=== PATIENT | female | born 1970 | race Caucasian/White ===

== ENCOUNTER 2016-04-23 06:51 | Observation (INO) | payer OTHER ==
[2016-04-02 10:43] VITALS: BMI 29.0
--- NOTE | 2016-04-02 11:16 | PAT Medication Instructions ---
Service Date Apr 02, 2016. Current Home Medication List Acetaminophen Tab (Tylenol), 650 MG PO prn Medication Instructions For Your Scheduled Surgery - Take the following medications the morning of surgery with a sip of water: Acetaminophen Tab (Tylenol), 650 MG PO prn (if needed) - Take the following medications as scheduled the night before surgery: Acetaminophen Tab (Tylenol), 650 MG PO prn (if needed) If you have any questions please call us at [phone] or [phone] ( [place]) or [phone]
[2016-04-02 11:53] LABS: BASO % 0.1 %; BASO ABS # 0.01 K/uL (0-0.2); COMPLETE YES; EOS % 1.2 %; HEMATOCRIT 42.4 % (37-47); IG% 0.4 %; LYMPH % 43.1 %; LYMPH ABS # 4.84 K/uL (1.2-3.4); MEAN CELL VOLUME 94.2 fL (80-100); MEAN CORPUSCULAR HEMOGLOBIN 31.6 pg (25-34); MEAN CORPUSCULAR HGB CONC 33.5 g/dl (32-36); MEAN PLATELET VOLUME 9.8 fL (7.4-10.4); MONO % 4.8 %; NEUT % 50.4 %; PLATELET COUNT 352 K/uL (130-400); WHITE BLOOD COUNT 11.23 K/uL (4.8-10.8)
--- NOTE | 2016-04-02 11:53 | DIAGNOSTIC IMAGING REPORT ---
CHEST PREADMISSION(PA/LAT) CLINICAL HISTORY: PAT preoperative evaluation COMPARISON STUDY: No previous studies for comparison. FINDINGS: The bones soft tissues and hemidiaphragms are normal. The cardiomediastinal silhouette is normal. The lungs are clear. The pulmonary vasculature is normal. IMPRESSION: Negative chest. Electronically signed by: Harvinder Rico M.D. 04/02/2016 11:52 AM Dictated Date/Time: 04/02/2016 11:51 AM
[2016-04-02 11:56] LABS: URINE APPEARANCE CLEAR (CLEAR); URINE BILIRUBIN NEG (NEG); URINE COLOR YELLOW; URINE NITRITE NEG (NEG); URINE PH 5.5 (4.5-7.5); URINE SPECIFIC GRAVITY 1.006 (1.000-1.030); UROBILINOGEN NEG (NEG)
[2016-04-02 11:58] LABS: MANUAL MICROSCOPIC REQUIRED? NO; REVIEW REQ? NO
[2016-04-02 12:20] LABS: BUN/CREATININE RATIO 2.5 (10-20); CALCIUM 8.9 mg/dl (8.5-10.1); CREATININE 0.75 mg/dl (0.60-1.20); POTASSIUM 3.3 mmol/L (3.5-5.1)
[2016-04-23] VITALS (16 sets, daily range): BP systolic 95–124; BP diastolic 63–82; PULSE 59–92; TEMP 36.3–37; O2SAT 91–97; Ht 165.1 cm; Wt 80.0 kg
[~2016-04-23] VITALS: Ht 165.1 cm; Wt 80.0 kg
[~2016-04-23 06:51] MED LIST: ACET325T96 PO; CLINDAMYCIN 600 MG/54 ML D5W IV SCH; CLINDAMYCIN IV 600 MG in DEXTROSE 5% ADD-VANTAGE 50ML 50 ML IV SCH; CeleBREX 200 MG CAP PO SCH; LACTATED RINGER'S 1000ML 1,000 ML IV SCH; PREGABALIN 75 MG CAP PO SCH
[2016-04-23] MEDS ORDERED: ROCURONIUM BROMIDE 10 MG/ML 5 ML VIAL ONE (07:17)
[2016-04-23] MEDS ORDERED: PROPOFOL IV EMULSION 10 MG/ML 20 ML VIAL IV ONE (07:17)
[2016-04-23] MEDS ORDERED: LIDOCAINE HCL 2% 2 ML VIAL (20MG/ML) ONE (07:17)
[2016-04-23] MEDS ORDERED: DEXAMETHASONE SOD INJ 4 MG/ML VIAL ONE (07:17)
[2016-04-23] MEDS ORDERED: MIDAZOLAM HCL 1 MG/ML 2ML VIAL ONE (07:17)
[2016-04-23] MEDS ORDERED: ONDANSETRON INJ 2 MG/ML 2 ML VIAL ONE (07:17)
[2016-04-23] MEDS ORDERED: GLYCOPYRROLATE INJ 0.2 MG/ML VIAL ONE (07:17)
[2016-04-23] MEDS ORDERED: NEOSTIGMINE METHYLSULFATE 1 MG/ML 10ML VIAL ONE (07:17)
[2016-04-23] MEDS ORDERED: FENTANYL CITRATE INJ 50 MCG/1 ML 2 ML VIAL ONE (07:17)
[2016-04-23] MEDS ORDERED: ALBUT/IPRATROP 3MG/0.5MG NEB 3 ML VIAL INH ONE (07:30)
[2016-04-23] MEDS ORDERED: BACITRACIN 50000 UNIT VIAL ONE (07:40)
[2016-04-23] MEDS ORDERED: THROMBIN 5000 UNITS KIT ONE (07:40)
[2016-04-23] MEDS ORDERED: ATROPINE SULFATE 0.1 MG/ML 5ML SYR IV PRN (07:45)
[2016-04-23] MEDS ORDERED: PHENYLEPHRINE 100MCG/ML 5ML SYR IV PRN (07:45)
[2016-04-23] MEDS ORDERED: ONDANSETRON INJ 2 MG/ML 2 ML VIAL IV PRN ×2 (07:45→11:00)
[2016-04-23] MEDS ORDERED: EpHEDrine SULFATE INJ 50 MG/ML AMP IV PRN (07:45)
--- NOTE | 2016-04-23 08:42 | History and Physical ---
History & Physical Date Apr 23, 2016. Chief Complaint neck and R arm pain/numbness History of Present Illness The patient is a 45 year old female with complaints of above who had longstanding symptoms that failed to respond to outpatient treatment. she reports R arm numbness/pain. no L arm symptoms or myelopathic symptoms. no incontinence. MRI show large disc herniation C6-7 and DDD C5-6 with foraminal stenosis. Past Medical/Surgical History BTL uterine ablation cervicalgia Additional History Hepatic Disease: No Endocrine Disorder: No Kidney Disease: No Hypertension: No Heart Disease: No Bleeding Tendencies: No Infectious Diseases: No Allergies Coded Allergies: Penicillins (Verified Allergy, Unknown, HIVES, 04/23/16) Hydrocodone (Verified Adverse Reaction, Unknown, N/V, 04/23/16) Home Medications Scheduled Acetaminophen Tab (Tylenol), 650 MG PO prn Physical Examination Skin: warm/dry Eyes: normal inspection ENT: normal ENT inspection Head: normocephalic, atraumatic Neck: supple, trachea midline Respiratory/Chest: lungs clear, no respiratory distress Cardiovascular: regular rate, rhythm Back: normal inspection Extremities: normal inspection, normal range of motion Neurologic/Psych: no motor/sensory deficits, alert, normal reflexes, oriented x 3 Diagnosis HNP C5-7/DDD Plan of Treatment C5-7 ACDF
[2016-04-23] MEDS ORDERED: HYDROmorphone INJ 2 MG/ML SYR/VIAL ONE (09:02)
[2016-04-23] MEDS: FLOSEAL HEMOSTATIC MATRIX 5ML TOP ONE (10:42)
--- NOTE | 2016-04-23 10:49 | [facility] Post Operative Brief Note ---
Immediate Operative Summary Operative Date Apr 23, 2016. Pre-Operative Diagnosis Herniated Nucleus Pulposus C5-C7 and Degenerative disc disease Post-Operative Diagnosis Same as preoperative diagnosis Procedure(s) Performed C5-C7 Anterior Cervical Discectomy and Fusion with Allograft Surgeon Dr Rees Senior Graduate Advisor Surgeon(s) Johann Russ PA-C Estimated Blood Loss 10ml Findings dict Specimens None per surgeon
[2016-04-23] MEDS ORDERED: ACETAMINOPHEN IV 1,000 MG in EMPTY BAG 0 ML IV PRN (11:00)
[2016-04-23] MEDS ORDERED: NALOXONE HCL 0.4 MG/1 ML VIAL/CARP IV PRN (11:00)
[2016-04-23] MEDS ORDERED: DiphenhydrAMINE HCL 50 MG/ML VIAL IV PRN (11:00)
[2016-04-23] MEDS ORDERED: LORAZEPAM 0.5 MG TAB PO PRN (11:00)
[2016-04-23] MEDS ORDERED: DEXAMETHASONE INJ 8 MG in SYRINGE 0 ML IV PRN (11:00)
[2016-04-23] MEDS ORDERED: LORAZEPAM INJ 0.5 MG in SYRINGE 0.75 ML IV PRN (11:00)
[2016-04-23] MEDS ORDERED: HYDROmorphone INJ 0.5 MG/0.5 ML SYR IV PRN (11:00)
[2016-04-23] MEDS ORDERED: OXYC-57 PO (11:00)
[2016-04-23] MEDS ORDERED: RACEPINEPHRINE 2.25% NEBU SOLN 0.5 ML VIAL INH PRN (11:00)
--- NOTE | 2016-04-23 11:02 | Discharge Instructions ---
Discharge Instructions Admission Reason for Admission: Cervical Spinal Stenosis Discharge Discharge Diagnosis / Problem: Cervical Stenosis Discharge Goals Goal(s): Decrease discomfort, Improve function, Increase independence Activity Recommendations Activity Limitations: as noted below Lifting Limitations: no more than 5 pounds Exercise/Sports Limitations: until after follow-up appointment May Resume Sexual Activity: after follow-up appointment Shower/Bathe: may shower/bathe in 3 days . Instructions / Follow-Up Instructions / Follow-Up ACTIVITY RECOMMENDATIONS: SELF CARE INSTRUCTIONS AFTER CERVICAL FUSIONS 1. No smoking. Smoking drastically decreases the chance of a solid fusion. 2. No bending, lifting more than 5 pounds, or twisting (roll like a log when turning in bed). 3. You may shower 3 days after surgery. Thoroughly dry wound. Do not soak in the tub. 4. Cervical collar: Must be worn at all times including sleeping. You may remove the brace only to bath, eat and if you are sitting in a recliner. 5. Please walk as much as you can for exercise. Gradually increase the distance that you walk as your endurance increases. SPECIAL CARE INSTRUCTIONS: VERY IMPORTANT TO READ AND REVIEW A. Do not take any anti-inflammatory medications (i.e. Indocin, Advil, Aspirin, Naprosyn, Aleve, Motrin, etc.) as these may inhibit the chance of a solid fusion. Tylenol is okay to take. B. Your surgical incision has been closed with a cosmetic suture under the skin that will dissolve in about 6 weeks. In 14 days, you can use a pair of clean scissors and cut the suture that is left outside of the skin at the ends of your incision. C. Complications are uncommon, but please contact us if you have any signs or symptoms of: 1. wound infection (fever higher than 102.5 degrees F, redness, separation of wound, drainage, or increasing pain from the incision) 2. blood clots in legs (pain, swelling, redness and warmth in legs) 3. urinary tract infection (fever higher than 102.5 degrees, burning upon urination or increased frequency of urination) 4. nerve problems (inability to walk on your toes or heels, numbness, loss of bowel or bladder control) 5. any other symptoms that concern you. D. Please call the office at if you have any concerns or questions about your operation or recovery. MANAGING PAIN AFTER SPINAL SURGERY 1. Narcotic medication is intended for short-term use and will be provided for surgical pain. Surgical pain usually lasts for a period of 4-6 weeks. Narcotic medication includes Percocet, Vicodin, Darvocet, Tylenol #3 or Lortab. 2. Longer-term pain is more appropriately treated with non-narcotic medication such as Tylenol ES. 3. Muscle spasm is not appropriately treated with narcotics. Muscle relaxers such as Soma, Flexeril or Skelaxin can be used along with Tylenol ES. 4. Remember that we all live with some "aches and pains". This is not unusual or uncommon after an injury or as we get older. 5. We will provide appropriate medication within the normal guidelines of their prescribed use. We will also be very cautious and aware of potential abuse and extended duration of patients' medication needs. 6. Please allow 2-3 days to process refills. Prescriptions will not be mailed but must be picked up at the office. FOLLOW UP VISIT: Keep your scheduled follow-up appointment. Any questions, please call the office at . Current Hospital Diet Patient's current hospital diet: Clear Liquid Diet Discharge Diet Recommended Diet: Regular Diet Procedures Procedures Performed: C5-C7 Anterior Cervical Discectomy and Fusion with Allograft Pending Studies Studies pending at discharge: no Medical Emergencies . Who to Call and When: Medical Emergencies: If at any time you feel your situation is an emergency, please call 911 immediately. . Non-Emergent Contact Non-Emergency issues call your: Surgeon Call Non-Emergent contact if: temperature is above 101, your pain is not controlled, wound has increased drainage, wound has increased redness, wound has increased pain, you have any medication questions . "Provider Documentation" section prepared by Segundo Russ. VTE Core Measure Inpt VTE Proph given/why not?: [facility] Drug Monitoring Program Search Results: patient reviewed within database, no issues identified
[2016-04-23] MEDS: HYDROmorphone INJ 2 MG/ML SYR/VIAL IV PRN ×2 (11:33→11:53)
[2016-04-23] MEDS ORDERED: IV FLUIDS COMPLETED PRN (11:45)
[2016-04-23] MEDS ORDERED: PHENYLEPHRINE 100MCG/ML 5ML SYR ONE (12:00)
[2016-04-23] MEDS: SODIUM CHLORIDE 0.9% 1000ML 1,000 ML IV SCH ×2 (12:52→23:34)
--- NOTE | 2016-04-23 13:23 | Anesthesiology Progress Note ---
Anesthesia Post Op Note Date & Time Apr 23, 2016 at 13:22 Vital Signs Pain Intensity: 2 Vital Signs Past 12 Hours Date Time Temp Pulse Resp B/P Pulse Ox O2 Delivery O2 Flow Rate FiO2 04/23/16 13:09 36.8 67 16 107/71 93 High Flow Oxygen 4.0 Nasal Cannula 04/23/16 13:05 68 16 94 Nasal Cannula 4.0 04/23/16 12:10 36.7 61 18 116/65 93 Nasal Cannula 4 04/23/16 12:00 68 14 138/75 94 Nasal Cannula 4 04/23/16 11:50 63 13 113/62 93 Nasal Cannula 4 04/23/16 11:40 56 12 115/66 93 Nasal Cannula 4 04/23/16 11:30 77 18 135/54 96 Mask 10 04/23/16 11:20 82 18 139/68 96 Mask 10 04/23/16 11:10 36.7 93 20 137/105 98 Mask 10 04/23/16 07:40 68 14 96 Room Air 04/23/16 07:10 36.5 76 20 113/80 97 Room Air Notes Mental Status: alert / awake / arousable, participated in evaluation Pt Amnestic to Procedure: Yes Nausea / Vomiting: adequately controlled Pain: adequately controlled Airway Patency, RR, SpO2: stable & adequate BP & HR: stable & adequate Hydration State: stable & adequate Anesthetic Complications: no major complications apparent
[2016-04-23] MEDS ORDERED: SCOPOLAMINE 1.5 MG TDSY TD SCH (14:00)
--- NOTE | 2016-04-23 14:04 | DIAGNOSTIC IMAGING REPORT ---
INTRAOPERATIVE CERVICAL SPINE 3 VIEWS CLINICAL HISTORY: ACDF C5-C7 COMPARISON STUDY: No previous studies for comparison. FINDINGS: 3 intraoperative fluoroscopic spot images are provided for interpretation. There are postsurgical changes of anterior discectomies at the C5-6 and C6-7 levels. 8 seconds of fluoroscopic time was utilized. IMPRESSION: Postsurgical changes of C5-6 and C6-7 discectomies with disc implants. Electronically signed by: Lavon Regan M.D. 04/23/2016 2:02 PM Dictated Date/Time: 04/23/2016 2:01 PM
--- NOTE | 2016-04-23 15:02 | OPERATIVE REPORT ---
DATE OF OPERATION: 04/23/2016 PREOPERATIVE DIAGNOSES: 1. C5-C6 disk degeneration. 2. C6-C7 herniated nucleus pulposus. POSTOPERATIVE DIAGNOSES: Same. PROCEDURES: 1. C5-C6 anterior cervical discectomy and fusion and application of PEEK intervertebral spacer with local autograft and DBM putty. 2. Anterior cervical diskectomy and fusion with application of PEEK intervertebral spacer, local autograft and DBM putty C6-C7. 3. Anterior cervical instrumentation C5-C6 and C6-C7 with LDR anterior cervical blade plate. SURGEON: Dr. Rees. MANUFACTURING STOREPERSON: Segundo Russ PA-C. Please note he participated in all portions of the procedure and was critical for performance of the procedure, participated in positioning, prepping, draping, retraction, and wound closure. ANESTHESIA: General endotracheal anesthesia. COMPLICATIONS: None. ESTIMATED BLOOD LOSS: Minimal. DESCRIPTION OF PROCEDURE: After identification of the patient and operative level, she was brought to the OR, where she underwent induction of general anesthesia. She was positioned supine on [facility] OR table. All bony prominences were well padded. The arms were tucked at sides and well padded. The arms, shoulders were taped distally and the anterior neck was sterilely prepped and draped in usual fashion. Antibiotics were administered. Time-out was performed. Level was confirmed and transverse skin incision was made on the right side of the neck at the level of the cricoid cartilage. I divided the platysma in line with the incision and performed a routine anterior cervical exposure with blunt dissection medial to the carotid sheath and identified the presumptive disk spaces. I confirmed level with fluoroscopy and marked the operative levels and mobilized the longus colli. A self-retaining cervical retractor was placed and Rice pins put in the bodies of C5 and C7. I reconfirmed level and then applied slight distraction across the pins. I then proceeded to do a complete diskectomy at C5-C6 and at C6-C7. After complete removal of each disk, I took down the posterior osteophytes with a kevin, posterior annulus and the PLL and did foraminotomies as necessary. There was extruded disk material behind the annulus C6-C7, but not behind the PLL. I palpated the nerve roots, we decompressed at C5-C6 and C6-C7 bilaterally. I then decorticated the endplates at C5-C6 and C6-C7 with a high speed kevin and determined graft size with trial sizers and inserted PEEK cages filled with local bone and DBM putty into the spaces at C5-C6 and C6-C7. I then released the distraction, applied bone wax over the holes and placed anterior cervical blade plates through the cages in the vertebral bodies of C5, C6 and C7 respectively. I obtained final x-rays, confirmed hemostasis, irrigated with bacitracin solution and closed in layered fashion over a small round drain. All sponge and needle counts were correct at the end of the case. I attest to the content of the Intraoperative Record and any orders documented therein. Any exceptio ns are noted below.
[2016-04-23] MEDS: CHECK SCOPOLAMINE PATCH PLACEMENT SCH ×2 (16:28→23:34)
[2016-04-23] MEDS: CLINDAMYCIN IV 600 MG in DEXTROSE 5% ADD-VANTAGE 50ML 50 ML IV SCH ×2 (16:28→23:33)
[2016-04-23] MEDS: DEXAMETHASONE INJ 6 MG in SYRINGE 0 ML IV SCH ×2 (16:28→23:34)
[2016-04-23] MEDS: OXYCODONE HCL IR 5 MG TAB (IMMEDIATE RELEASE) PO PRN ×2 (18:37→19:04)
[2016-04-24] VITALS (13 sets, daily range): BP systolic 93–104; BP diastolic 59–68; PULSE 58–78; TEMP 36.4–37; O2SAT 87–92
[2016-04-24] MEDS: OXYCODONE HCL IR 5 MG TAB (IMMEDIATE RELEASE) PO PRN (05:36)
[2016-04-24] MEDS: DEXAMETHASONE INJ 6 MG in SYRINGE 0 ML IV SCH (07:43)
[2016-04-24] MEDS: CHECK SCOPOLAMINE PATCH PLACEMENT SCH (07:43)
[2016-04-24] MEDS: CLINDAMYCIN IV 600 MG in DEXTROSE 5% ADD-VANTAGE 50ML 50 ML IV SCH (07:43)
--- NOTE | 2016-04-24 11:27 | Orthopedic Progress Note ---
Orthopedic Progress Note Date of Service Apr 24, 2016. Subjective Post OP Day: 1 Reports: feeling well, pain controlled w PO medications, Denies: SOB, calf pain , chest pain, complaints, light headedness, nausea / vomiting, using TEACHER OF THE VISUALLY IMPAIRED Objective calves soft nontender, N/V intact, incision C/D/I, A&O x3 Date Time Temp Pulse Resp B/P Pulse Ox O2 Delivery O2 Flow Rate FiO2 04/24/16 11:11 58 16 90 Room Air 04/24/16 09:27 37.0 77 16 96/62 91 4.0 04/24/16 07:27 70 16 90 Nasal Cannula 4.0 04/24/16 07:11 90 Nasal Cannula 4.0 04/24/16 06:56 36.7 64 17 96/63 90 Nasal Cannula 3.0 04/24/16 06:22 92 Nasal Cannula 4.0 Humidified Oxygen 04/24/16 06:18 87 Nasal Cannula 3.0 Humidified Oxygen 04/24/16 05:28 36.7 60 16 102/66 92 Nasal Cannula 3.0 Humidified Oxygen 04/24/16 03:25 36.4 62 16 93/59 92 Nasal Cannula 3.0 Humidified Oxygen 04/24/16 03:21 78 16 92 Nasal Cannula 3.0 04/24/16 01:32 36.8 61 16 101/61 91 Nasal Cannula 3.0 Humidified Oxygen 04/23/16 23:29 36.7 88 16 124/82 91 Nasal Cannula 3.0 Humidified Oxygen 04/23/16 23:27 59 14 92 Nasal Cannula 3.0 04/23/16 21:28 36.4 83 16 104/70 93 Nasal Cannula 3.0 Humidified Oxygen 04/23/16 19:41 81 16 94 Nasal Cannula 4.0 04/23/16 19:33 36.4 80 18 110/74 93 Nasal Cannula 4.0 Humidified Oxygen 04/23/16 19:30 Nasal Cannula 4.0 Humidified Oxygen 04/23/16 17:41 36.3 65 18 95/63 94 Nasal Cannula 2.0 04/23/16 15:37 78 16 93 Nasal Cannula 4.0 04/23/16 15:30 36.9 87 16 103/68 95 Nasal Cannula 4.0 Humidified Oxygen 04/23/16 15:23 95 Nasal Cannula 2.0 Humidified Oxygen 04/23/16 14:30 92 16 107/68 95 Nasal Cannula 4.0 Humidified Oxygen 04/23/16 14:30 95 Nasal Cannula 2.0 Humidified Oxygen 04/23/16 13:26 82 16 110/71 92 High Flow Oxygen 4.0 Nasal Cannula 04/23/16 13:09 36.8 67 16 107/71 93 High Flow Oxygen 4.0 Nasal Cannula 04/23/16 13:05 68 16 94 Nasal Cannula 4.0 04/23/16 12:30 92 Nasal Cannula 2.0 04/23/16 12:30 92 Nasal Cannula 2.0 Humidified Oxygen 04/23/16 12:30 37.0 69 16 98/64 92 Nasal Cannula Humidified Oxygen 04/23/16 12:10 36.7 61 18 116/65 93 Nasal Cannula 4 04/23/16 12:00 68 14 138/75 94 Nasal Cannula 4 04/23/16 11:50 63 13 113/62 93 Nasal Cannula 4 04/23/16 11:40 56 12 115/66 93 Nasal Cannula 4 04/23/16 11:30 77 18 135/54 96 Mask 10 Assessment & Plan Assessment: s/p acdf Plan: looks great, d/c home
--- NOTE | 2016-04-24 13:32 | Anesthesiology Progress Note ---
Anesthesia Post Op Note Date & Time Apr 24, 2016 at 08:00 Vital Signs Pain Intensity: 0.0 Vital Signs Past 12 Hours Date Time Temp Pulse Resp B/P Pulse Ox O2 Delivery O2 Flow Rate FiO2 04/24/16 11:38 36.6 62 16 104/68 90 Room Air 04/24/16 11:26 37.0 58 16 90 Room Air 04/24/16 11:11 58 16 90 Room Air 04/24/16 09:27 37.0 77 16 96/62 91 4.0 04/24/16 07:27 70 16 90 Nasal Cannula 4.0 04/24/16 07:11 90 Nasal Cannula 4.0 04/24/16 06:56 36.7 64 17 96/63 90 Nasal Cannula 3.0 04/24/16 06:22 92 Nasal Cannula 4.0 Humidified Oxygen 04/24/16 06:18 87 Nasal Cannula 3.0 Humidified Oxygen 04/24/16 05:28 36.7 60 16 102/66 92 Nasal Cannula 3.0 Humidified Oxygen 04/24/16 03:25 36.4 62 16 93/59 92 Nasal Cannula 3.0 Humidified Oxygen 04/24/16 03:21 78 16 92 Nasal Cannula 3.0 04/24/16 01:32 36.8 61 16 101/61 91 Nasal Cannula 3.0 Humidified Oxygen Notes Mental Status: alert / awake / arousable, participated in evaluation Pt Amnestic to Procedure: Yes Nausea / Vomiting: adequately controlled Pain: adequately controlled Airway Patency, RR, SpO2: stable & adequate BP & HR: stable & adequate Hydration State: stable & adequate Anesthetic Complications: no major complications apparent pt breathing comfortable, with no obvious s/s of airway obstruction pt states they are comfortable.
--- NOTE | 2016-05-19 13:57 | Discharge Summary ---
Orthopedic Discharge Summary Admission Date/Reason Apr 23, 2016 at 12:35 Cervical Spinal Stenosis. Discharge Date/Disposition Apr 24, 2016 Home Diagnosis Principal Diagnosis: same Procedure(s) Performed ACDF C5-7 Medication Reconciliation New Medications: Oxycodone/Acetaminophen 5MG/325MG (Percocet 5MG/325MG) Tab 1-2 TABLETS PO Q4H PRN for Pain, #60 TAB Continued Medications: Acetaminophen Tab (Tylenol) 325 Mg Tab 650 MG PO prn, TAB Admission Physical Exam As per Admitting History & Physical. Hospital Course She was admitted for elective cervical fusion. She did well and was hemodynamically stable both intraoperatively and postop. Her pain was controlled. She had DVT prophylaxis with SCDs, and tolerated her diet, and showed improvement of preop symptoms. Discharge Instructions Please refer to the electronic Patient Visit Report (Discharge Instructions) for additional information.
== END 2016-04-24 12:31 | disposition home or self-care (01) ==
LOC: ENRESERVTM → ENRESERVDT → C.ACU 06:51 → C.3E 12:35
PROVIDERS: ADMIT Orthopaedic Surgery Orthopaedic Surgery of the Spine; ATTEND Orthopaedic Surgery Orthopaedic Surgery of the Spine
DX: M50.322 Other cervical disc degeneration at C5-C6 level (principal); M50.223 Other cervical disc displacement at C6-C7 level

== ENCOUNTER 2017-09-19 16:03 | Emergency (ER) | payer OTHER ==
[~2017-09-19] VITALS: Ht 165.1 cm; Wt 76.7 kg
[~2017-09-19 16:03] MED LIST changes: +ACET-1693 PO; -ACET325T96 PO; -CLINDAMYCIN 600 MG/54 ML D5W IV SCH; -CLINDAMYCIN IV 600 MG in DEXTROSE 5% ADD-VANTAGE 50ML 50 ML IV SCH; -CeleBREX 200 MG CAP PO SCH; -LACTATED RINGER'S 1000ML 1,000 ML IV SCH; -PREGABALIN 75 MG CAP PO SCH
[2017-09-19 16:05] VITALS: TEMP 36.7; Ht 165.1 cm; Wt 76.7 kg
[2017-09-19] MEDS ORDERED: SODIUM CHLORIDE 0.9% 1000ML 1,000 ML IV ONE (16:19)
--- NOTE | 2017-09-19 16:51 | DIAGNOSTIC IMAGING REPORT ---
CHEST ONE VIEW PORTABLE CLINICAL HISTORY: EVALUATE WEAKNESS dyspnea COMPARISON STUDY: 04/02/2016 FINDINGS: The bones soft tissues and hemidiaphragms are normal. The cardiomediastinal silhouette is normal. The lungs are clear. The pulmonary vasculature is normal. IMPRESSION: Negative chest. The above report was generated using voice recognition software. It may contain grammatical, syntax or spelling errors. Electronically signed by: Harvinder Rico M.D. 09/19/2017 4:50 PM Dictated Date/Time: 09/19/2017 4:49 PM
--- NOTE | 2017-09-19 16:53 | DIAGNOSTIC IMAGING REPORT ---
HEAD WITHOUT CONTRAST (CT) CT DOSE: 537.48 mGy.cm HISTORY: Mental status change EVALUATE WEAKNESS TECHNIQUE: Multiaxial CT images of the head were performed without the use of intravenous contrast. A dose lowering technique was utilized adhering to the principles of ALARA. Comparison: None. Findings: The paranasal sinuses and mastoid air cells are clear. The calvarium and skull base are intact. The ventricles and sulci are within normal limits. There is no mass, hematoma, midline shift, or acute infarct. Impression: No acute intracranial abnormality. The above report was generated using voice recognition software. It may contain grammatical, syntax or spelling errors. Electronically signed by: Harvinder Rico M.D. 09/19/2017 4:52 PM Dictated Date/Time: 09/19/2017 4:51 PM
[2017-09-19 16:56] LABS: HEMATOCRIT 42.3 % (37-47); MEAN CELL VOLUME 89.4 fL (80-100); MEAN CORPUSCULAR HEMOGLOBIN 29.6 pg (25-34); MEAN CORPUSCULAR HGB CONC 33.1 g/dl (32-36); MEAN PLATELET VOLUME 10.4 fL (7.4-10.4); PLATELET COUNT 334 K/uL (130-400); RED CELL DISTRIBUTION WIDTH CV 14.4 % (11.5-14.5); RED CELL DISTRIBUTION WIDTH SD 47.3 fL (36.4-46.3); WHITE BLOOD COUNT 13.15 K/uL (4.8-10.8)
[2017-09-19 17:25] LABS: ALBUMIN 3.7 gm/dl (3.4-5.0); ALKALINE PHOSPHATASE 107 U/L (45-117); ALT/SGPT 23 U/L (12-78); AST/SGOT 11 U/L (15-37); BLOOD UREA NITROGEN 6 mg/dl (7-18); CALCIUM 8.8 mg/dl (8.5-10.1); CARBON DIOXIDE 25 mmol/L (21-32); CREATININE 0.81 mg/dl (0.60-1.20); GLUCOSE 85 mg/dl (70-99); POTASSIUM 3.9 mmol/L (3.5-5.1); SODIUM 136 mmol/L (136-145); TOTAL PROTEIN 7.9 gm/dl (6.4-8.2)
[2017-09-19 18:22] VITALS: BP 129/63; PULSE 76; O2SAT 98
--- NOTE | 2017-09-19 18:39 | EMERGENCY ROOM VISIT NOTE ---
History Report prepared by Chaparrita: Gema Cordoba Under the Supervision of: Dr. Alton Padron M.D. First contact with patient: 16:11 Chief Complaint: DIZZY Stated Complaint: HAVING TROUBLE WITH BALANCE AND EYESIGHT Nursing Triage Summary: Patient complains of dizziness, feeling unsteady and left eye blurriness. Symptoms come and go History of Present Illness The patient is a 46 year old female who presents to the Emergency Room with complaints of intermittent dizziness starting 2-3 days ago. She feels normal when she is laying down, but as soon as she sits up she becomes dizzy. The patient has been feeling off balance. She has never experienced this before. Her right eye vision has been fuzzy. She feels like she has had some difficulty judging distance. She has been drinking orange juice over concerns that her sugar is low. She does not check her sugar at home. She has had some diaphoresis. She denies any fever, headache, runny nose, weakness, numbness, tingling, difficulty speaking, hearing changes, urinary symptoms, change in bowel movements, nausea, or vomiting. She denies any recent falls or trauma. She has been eating well. She notes that she was on the Modere diet, but stopped when the dizziness started. She denies having any medical problems. She does smoke. She denies any alcohol or drug use. She notes that she had neck surgery 1 month ago. She has not had any known sick contacts. Source of History: patient Onset: 2-3 days ago Position: head Quality: other (dizziness) Timing: intermittent Modifying Factors (Worsening): other (sitting up) Associated Symptoms: No fevers, No headache, No nausea, No vomiting, No urinary symptoms, No weakness, No numbness Note: Pt reports fuzzy vision in right eye. Review of Systems See HPI for pertinent positives and negatives. A total of ten systems were reviewed and were otherwise negative. Past Medical & Surgical Medical Problems: (1) DDD (degenerative disc disease), cervical Family History No pertinent family history stated Social History Smoking Status: Current Every Day Smoker Alcohol Use: occasionally Occupation Status: unemployed Current/Historical Medications No Active Prescriptions or Reported Meds Allergies Coded Allergies: Penicillins (Verified Allergy, Unknown, HIVES, 04/23/16) Hydrocodone (Verified Adverse Reaction, Unknown, N/V, 04/23/16) Physical Exam Vital Signs Date Time Temp Pulse Resp B/P (MAP) Pulse Ox O2 Delivery O2 Flow Rate FiO2 09/19/17 18:22 76 16 129/63 98 09/19/17 17:00 70 12 110/63 97 Room Air 80 104/64 85 118/66 09/19/17 16:39 Room Air 09/19/17 16:26 79 09/19/17 16:05 36.7 93 17 128/83 98 Room Air Physical Exam GENERAL: Awake, alert, well-appearing, in no distress HENT: Normocephalic, atraumatic. Oropharynx unremarkable. EYES: Normal conjunctiva. Sclera non-icteric.EOMI. No nystagmus. Right eye peripheral vision is grossly intact to field testing. NECK: Supple. No nuchal rigidity. RESPIRATORY: Clear to auscultation. No wheezes. Normal respiratory effort. CARDIAC: Normal rate. Normal rhythm. Extremities warm and well perfused. GI: Soft, non-distended. No tenderness to palpation. No rebound or guarding. No masses. RECTAL: Deferred. MUSCULOSKELETAL: Atraumatic. Chest examination reveals no tenderness. The back is symmetrical on inspection without obvious abnormality. There is no CVA tenderness to palpation. LOWER EXTREMITIES: Calves are equal size bilaterally and non-tender. No edema NEURO: Normal sensorium. No sensory or motor deficits noted. No facial droop or slurred speech. No aphasia. SKIN: Warm and dry. No rash or jaundice noted. Medical Decision & Procedures ER Provider Diagnostic Interpretation: Radiology results as stated below per my review and radiologist interpretation: CHEST ONE VIEW PORTABLE CLINICAL HISTORY: EVALUATE WEAKNESS dyspnea COMPARISON STUDY: 04/02/2016 FINDINGS: The bones soft tissues and hemidiaphragms are normal. The cardiomediastinal silhouette is normal. The lungs are clear. The pulmonary vasculature is normal. IMPRESSION: Negative chest. The above report was generated using voice recognition software. It may contain grammatical, syntax or spelling errors. Electronically signed by: Harvinder Rico M.D. 09/19/2017 4:50 PM Dictated Date/Time: 09/19/2017 4:49 PM HEAD WITHOUT CONTRAST (CT) CT DOSE: 537.48 mGy.cm HISTORY: Mental status change EVALUATE WEAKNESS TECHNIQUE: Multiaxial CT images of the head were performed without the use of intravenous contrast. A dose lowering technique was utilized adhering to the principles of ALARA. Comparison: None. Findings: The paranasal sinuses and mastoid air cells are clear. The calvarium and skull base are intact. The ventricles and sulci are within normal limits. There is no mass, hematoma, midline shift, or acute infarct. Impression: No acute intracranial abnormality. The above report was generated using voice recognition software. It may contain grammatical, syntax or spelling errors. Electronically signed by: Harvinder Rico M.D. 09/19/2017 4:52 PM Dictated Date/Time: 09/19/2017 4:51 PM Laboratory Results 09/19/17 16:25 Red Blood Count 4.73, Mean Corpuscular Volume 89.4, Mean Corpuscular Hemoglobin 29.6, Mean Corpuscular Hemoglobin Concent 33.1, Mean Platelet Volume 10.4 09/19/17 16:25 Test 09/19/17 16:10 09/19/17 16:14 09/19/17 16:25 09/19/17 18:13 Urine Color YELLOW Urine Appearance CLEAR (CLEAR) Urine pH 7.0 (4.5-7.5) Urine Specific [place]wood 1.003 (1.000-1.030) Urine Protein NEG (NEG) Urine Glucose (UA) NEG (NEG) Urine Ketones NEG (NEG) Urine Occult Blood NEG (NEG) Urine Nitrite NEG (NEG) Urine Bilirubin NEG (NEG) Urine Urobilinogen NEG (NEG) Urine Leukocyte Esterase NEG (NEG) Bedside Glucose 86 mg/dl (70-90) White Blood Count 13.15 K/uL (4.8-10.8) Red Blood Count 4.73 M/uL (4.2-5.4) Hemoglobin 14.0 g/dL (12.0-16.0) Hematocrit 42.3 % (37-47) Mean Corpuscular Volume 89.4 fL (80-100) Mean Corpuscular Hemoglobin 29.6 pg (25-34) Mean Corpuscular Hemoglobin Concent 33.1 g/dl (32-36) Platelet Count 334 K/uL (130-400) Mean Platelet Volume 10.4 fL (7.4-10.4) RDW Standard Deviation 47.3 fL (36.4-46.3) RDW Coefficient of Variation 14.4 % (11.5-14.5) Neutrophils % (Manual) 51.3 % Lymphocytes % (Manual) 24.3 % Variant Lymphocytes % (manual) 13.9 % Monocytes % (Manual) 7.0 % Eosinophils % (Manual) 2.6 % Basophils % (Manual) 0.9 % Neutrophils # (Manual) 6.75 K/uL (1.4-6.5) Total Absolute Neutrophils 6.75 K/uL (1.4-6.5) Lymphocytes # (Manual) 3.20 K/uL (1.2-3.4) Absolute Variant Lymphocytes 1.83 K/uL Total Absolute Lymphocytes 5.02 K/uL (1.2-3.4) Monocytes # (Manual) 0.92 K/uL (0.11-0.59) Eosinophils # (Manual) 0.34 K/uL (0-0.5) Basophils # (Manual) 0.12 K/uL (0-0.2) Red Blood Cell Morphology Unremarkable Anion Gap 7.0 mmol/L (3-11) Est Creatinine Clear Calc Drug Dose 89.8 ml/min Estimated GFR () 101.7 Estimated GFR (Non- 87.7 BUN/Creatinine Ratio 6.9 (10-20) Calcium Level 8.8 mg/dl (8.5-10.1) Magnesium Level 1.8 mg/dl (1.8-2.4) Total Bilirubin 0.2 mg/dl (0.2-1) Direct Bilirubin < 0.1 mg/dl (0-0.2) Aspartate Amino Transf (AST/SGOT) 11 U/L (15-37) Alanine Aminotransferase (ALT/SGPT) 23 U/L (12-78) Alkaline Phosphatase 107 U/L (45-117) Troponin I < 0.015 ng/ml (0-0.045) Total Protein 7.9 gm/dl (6.4-8.2) Albumin 3.7 gm/dl (3.4-5.0) Thyroid Stimulating Hormone (TSH) 0.973 uIu/ml (0.300-4.500) Human Chorionic Gonadotropin, Qual NEG (NEG) Laboratory results reviewed by me Medications Administered Medications (Trade) Dose Ordered Sig/Delores Route Start Time Stop Time Status Last Admin Dose Admin Sodium Chloride 1,000 ml @ 999 mls/hr Q1H1M ONCE IV 09/19/17 16:19 09/19/17 17:19 DC 09/19/17 16:39 999 MLS/HR ECG Per My Interpretation Indication: other (dizziness) Rate (beats per minute): 73 Rhythm: normal sinus Findings: other (normal axis, normal intervals, no ST segment elevation) Comparison ECG Date: 02-Apr-2016 Change: no significant change ED Course 1612: The patient was evaluated in room A4B. A complete history and physical exam was performed. 1619: Sodium Chloride 1000 ml @ 999 mls/hr IV. 1805: I reevaluated the patient. Discussed results and discharge instructions: She verbalized understanding and agreement. The patient is ready for discharge. Medical Decision Etiologies such as benign positional vertigo, tumor, infection, hypoglycemia, electrolyte abnormalities, cardiac sources, intracerebral event, toxicologic, neurologic, as well as others were entertained. Patient presents with complaint of last 3 days feeling little bit off and dizzy. More when standing up. Has been eating more without any change in this. No headache. No eye pain. No URI or sinus symptoms. No chest pain nausea vomiting or diarrhea. No urinary symptoms. No numbness or weakness in the other extremities. No aphasia or memory issues. No history of this. No recent trauma. Her exam is unremarkable other than she describes little bit of right peripheral blurriness in her vision. No floaters or flashes. Again no eye pain. No nystagmus appreciated. Not critically provocable. CT the head completed without acute findings. Chest x-ray unremarkable. Labs are otherwise benign without infectious etiology. Given some hydration here. Doubt acute glaucoma, CRAO, CRVO, iritis, uveitis. No conjunctival injection. Does not appear meningitic. Symptoms are somewhat positional but not clearly BPPV. Patient has no history of MS and other again neurological symptoms. At this point had a milton discussion with her regarding workup and results. Will contact if Lyme testing comes back positive but discussed at this point following up with her regular doctor and an eye doctor for evaluation going forward. Advised safety to prevent falls. Discussed return criteria. She was agreeable with this plan. Medication Reconcilliation Current Medication List: was personally reviewed by me Blood Pressure Screening Patient's blood pressure: Normal blood pressure Impression Primary Impression: Dizziness Scribe Attestation The scribe's documentation has been prepared under my direction and personally reviewed by me in its entirety. I confirm that the note above accurately reflects all work, treatment, procedures, and medical decision making performed by me. Departure Information Dispostion Home / Self-Care Prescriptions No Active Prescriptions or Reported Meds Referrals No Doctor, Assigned (PCP) Bashir Lyles M.D. Forms HOME CARE DOCUMENTATION FORM, IMPORTANT VISIT INFORMATION Patient Instructions My [facility] Additional Instructions Continue to maintain hydration and eat regular meals. Given some visual issues have been having recommend outpatient ophthalmology follow-up within the next week. Would recommend outpatient follow-up with your regular doctor in the next 7 days. Please be careful not to fall if unsteady. If you have new or worrisome symptoms please return for evaluation here at any time.
== END 2017-09-19 18:23 | disposition home or self-care (01) ==
LOC: C.EDB 16:05 → C.EDA 18:23
DX: R42 Dizziness and giddiness (principal); F17.210 Nicotine dependence, cigarettes, uncomplicated; M50.30 Other cervical disc degeneration, unspecified cervical region; Z88.0 Allergy status to penicillin; Z88.5 Allergy status to narcotic agent